=== PATIENT | female | born 1980 | race Caucasian/White ===

== ENCOUNTER 2019-03-11 15:08 | Emergency (ER) | payer OTHER ==
--- NOTE | 2019-03-11 15:21 | PDOC ---
Rapid Medical Evaluation Time Seen by Provider: 03/11/19 15:17 Medical Evaluation: 03/11/19 15:20 cc: s/p fall today HPI: Patient tripped and fall today with injury to left shoulder complaining of pain with movement of shoulder PE: appears in pain pain with movement of left arm +tenderness of left shoulder orders: xray of left shoulder and analgesia This patient will proceed to the main emergency department for further evaluation Discharge Disposition - Diagnosis Shoulder injury - Referrals - Patient Instructions - Post Discharge Activity
[2019-03-11 15:22] VITALS: BMI 24.1
[2019-03-11] MEDS ORDERED: morphine CARPU-JECT 2 MG/1 ML DISP.SYRIN IVPUSH ONE (15:28)
[2019-03-11] MEDS ORDERED: MORPHINE SULFATE 2 MG/ML VIAL ONE (16:44)
[2019-03-11] MEDS ORDERED: morphine CARPU-JECT 4 MG/1 ML DISP.SYRIN IVPUSH ONE (17:07)
[2019-03-11] MEDS ORDERED: HYDROmorphone HCL CARPU-JECT 2 MG/1 ML DISP.SYRIN IVPUSH ONE (17:10)
[2019-03-11] MEDS ORDERED: ACETAMINOPHEN 1000 MG/100 ML VIAL (NON FORMULARY) IVPB ONE (17:11)
[2019-03-11] MEDS ORDERED: HYDROmorphone HCl 2 MG/ML VIAL ONE (17:21)
[2019-03-11] MEDS ORDERED: ACETAMINOPHEN INJECTION 100 ML IVPB ONE (17:21)
--- NOTE | 2019-03-11 17:31 | PDOC ---
History of Present Illness - General Chief Complaint: Shoulder Dislocation Stated Complaint: FALL Time Seen by Provider: 03/11/19 15:17 History Source: Patient Exam Limitations: No Limitations - History of Present Illness Initial Comments: 03/11/19 17:34 HPI: 38yo F with no significant PMH presenting with L arm pain s/p FOOSh injury. Patient was walking her dog, fell onto outstretched hands, now with L shoulder pain. Denies numbness, tingling, distal swelling. No intoxication, no head trauma / neck pain. No skin breaks or bleeding in region of arm pain. Denies any chest pain, SOB, cough, dizziness, lightheadedness, recent illness. No anemia, no bleeding or clotting disorders. All: Cephalosporins Meds: 50mg Zoloft PMH: Denies PSH: Denies Past History - Travel Traveled outside of the country in the last 30 days: No Close contact w/someone who was outside of country & ill: No - Past Medical History Allergies/Adverse Reactions: Allergies Allergy/AdvReac Type Severity Reaction Status Date / Time Cephalosporins Allergy Verified 03/11/19 15:22 Home Medications: Ambulatory Orders Oxycodone HCl/Acetaminophen [Percocet 5-325 mg Tablet] 1 tab PO Q6H PRN #8 tablet MDD 3 tabs 03/11/19 COPD: No Psychiatric Problems: Yes (DEPRESSION) - Psycho Social/Smoking Cessation Hx Smoking History: Never smoked Review of Systems - Review of Systems Able to Perform ROS?: Yes Is the patient limited Lithuanian proficient: Yes Constitutional: No: Chills, Fever, Weakness HEENTM: No: Recent change in vision, Nose Congestion, Throat Pain Respiratory: No: Cough, Shortness of Breath, Wheezing Cardiac (ROS): No: Chest Pain, Irregular Heart Rate, Lightheadedness, Palpitations, Chest Tightness ABD/GI: No: Constipated, Diarrhea, Nausea, Vomiting : No: Burning, Dysuria, Discharge Musculoskeletal: No: Muscle Pain, Muscle Weakness, Neck Pain Integumentary: No: Pallor, Pruritus, Rash Neurological: No: Headache, Numbness, Tingling, Weakness Psychiatric: No: Stressors, Change in Appetite Endocrine: No: Increased Thirst, Increased Urine, Change in Weight Hematologic/Lymphatic: No: Anemia, Blood Clots, Easy Bleeding All Other Systems: Reviewed and Negative *Physical Exam - Vital Signs Last Vital Signs Temp Pulse Resp BP Pulse Ox 97.9 F 75 18 0/0 L 99 03/11/19 15:19 03/11/19 15:19 03/11/19 15:19 03/11/19 15:19 03/11/19 15:19 - Physical Exam 03/11/19 19:00 Vitals reviewed, AFVSS GEN: Well appearing, appears stated age, NAD, comfortable. AAOx3. HEENT: NCAT, EOMI, PERRL. Sclera anicteric, noninjected. No facial asymmetry. Moist mucous membranes. Normal voice. Trachea midline. CV: RRR, S1/S2, no murmurs / rubs / gallops appreciated. LUNG: CTAB, normal work of breathing. No wheezes, rales, rhonchi. No cough. Speaking full sentences. GI: Soft, NTND, +BS, no guarding, no rebound. No masses. Neg CVAT b/l. EXTREMITIES: 2+ distal pulses. No LE edema. MSK: LUE tender, swollen, painful with ROM, limited 2/2 pain SKIN: Warm, dry, no rashes appreciated, non-jaundiced. PSYCH: Normal mood and affect. Cooperative and appropriate. NEURO: CN grossly intact. Moving all extremities well. Normal strength and sensation grossly. Normal sensation to light touch LUE. ED Treatment Course - Medications Given in the ED: ED Medications Discontinued Medications Generic Name Dose Route Start Last Admin Trade Name Freq PRN Reason Stop Dose Admin Morphine Sulfate 2 mg 03/11/19 15:28 03/11/19 16:49 Morphine Injection - IVPUSH 03/11/19 15:29 2 mg ONCE ONE Administration Morphine Sulfate 4 mg 03/11/19 17:07 03/11/19 17:19 Morphine Injection - IVPUSH 03/11/19 17:08 Not Given ONCE ONE Medical Decision Making - Medical Decision Making 03/11/19 17:26 38yo F with no significant PMH presenting with L arm pain s/p FOOSH injury, neurovascularly intact, stable vitals, comfortable without motion. - LUE Xray with comminuted humeral fracture - 2mg Morphine - Spoke with Ortho, Pain control, CT LUE, F/u with Dr. Balderas tomorrow morning - Recommended percocet for breakthrough pain 03/11/19 17:57 - LMP 2 weeks ago, does not believe she could be - States she is happy to sign for CT - Tylenol, Dilaudid 03/11/19 18:10 - CT with expected findings, no emergent changes - CD and paper report provided - Patient placed in sling - Return precautions discussed Dispo: Home, Ortho F/u tomorrow Discharge - Discharge Information Problems reviewed: Yes Clinical Impression/Diagnosis: Shoulder injury Qualifiers: Encounter type: initial encounter Laterality: left Qualified Code(s): S49.92XA - Unspecified injury of left shoulder and upper arm, initial encounter Condition: Stable Disposition: HOME - Admission No - Additional Discharge Information Prescriptions: Oxycodone HCl/Acetaminophen [Percocet 5-325 mg Tablet] 1 tab PO Q6H PRN #8 tablet MDD 3 tabs PRN Reason: Severe Pain - Follow up/Referral Referrals: Shara Vora MD [Primary Care Provider] - Darrius Zimmer MD [Staff Physician] - - Patient Discharge Instructions Patient Printed Discharge Instructions: How to Use a Sling, DI for Shoulder Fracture Additional Instructions: You were seen and evaluated in the [facility] ER after a fall. A prescription pain medication (Percocet) has been sent to your pharmacy. Please take this as directed - you can use these 1/2 at a time to avoid side effects (lightheaded, dizzy, nausea). Take ibuprofen as well for the anti inflammatory properties. Follow up with Orthopaedic surgery (Dr. Zimmer) first thing tomorrow morning. Call their office to arrange your appointment. Return the the ED for any new or concerning symptoms. These can include but are not limited to: firmness of your arm, changes in color to a white color, loss of pulses, numbness / tingling. - Post Discharge Activity
--- NOTE | 2019-03-11 19:29 | PDOC ---
Documentation entered by Jose Roberto Huynh SCRIBE, acting as scribe for Ceci Pike MD. Ceci Pike MD: This documentation has been prepared by the Amina horn Xhesika, SCRIBE, under my direction and personally reviewed by me in its entirety. I confirm that the documentation accurately reflects all work, treatment, procedures, and medical decision making performed by me. Attending Attestation - Resident Resident Name: Brennan Rodriguez - ED Attending Attestation I have performed the following: I have examined & evaluated the patient, The case was reviewed & discussed with the resident, I agree w/resident's findings & plan, Exceptions are as noted - HPI HPI: 03/11/19 17:14 The patient is a 38 year old female with no significant PMH of who presents to the emergency department for L shoulder pain s/p fall. The patient states she was walking her dog and patient tripped down the hill. Pt denies LOC or hitting head. Pt notes her L shoulder pain is aggravated with arm movements. Pt states her LMP was 2 weeks ago. The patient denies chest pain, shortness of breath, headache and dizziness. Denies fever, chills, cough, nausea, vomiting, diarrhea and constipation. Denies dysuria, frequency, urgency and hematuria. Allergies: cephalosporins PCP: Shara Galeas - Physicial Exam PE: 03/11/19 17:29 GENERAL: Awake, alert, and fully oriented, in no acute distress HEAD: No signs of trauma EYES: PERRLA, EOMI, sclera anicteric, conjunctiva clear NECK: Normal ROM, supple, No midline cervical vertebral tenderness LUNGS: Breath sounds equal, clear to auscultation bilaterally. No wheezes, and no crackles HEART: Regular rate and rhythm, normal S1 and S2, no murmurs, rubs or gallops ABDOMEN: Soft, nontender, normoactive bowel sounds. No guarding, no rebound. No masses EXTREMITIES: + LEFT shoulder TTP. + LEFT shoulder slight deformity, sensation is intact,good ulnar and radial pulses NEUROLOGICAL: Cranial nerves II through XII grossly intact. Normal speech, normal gait SKIN: Warm, Dry, normal turgor, no rashes or lesions noted. 03/11/19 19:26 03/11/19 19:31 03/11/19 19:57 - Medical Decision Making 03/11/19 19:28 Shoulder x-ray shows a comminuted slightly displaced fracture involving the junction of the Left humeral neck, proximal humeral shaft with an avulsive fracture of the greater tuberosity Ortho consult with PA for Dr. Zimmer and recommendation is to do a CAT scan of the arm, sling the arm patient will be seen tomorrow in the office 03/11/19 19:55 03/11/19 20:01
[2019-03-11] MEDS ORDERED: IBUPROFEN 600 MG TABLET (FP) PO ONE ×2 (20:01→20:08)
[2019-03-11 20:25] VITALS: BP 110/65; PULSE 68; TEMP 98.1
== END 2019-03-11 20:32 | disposition home or self-care (01) ==
LOC: JER 15:08
PROC: 3E033NZ Introduction of Analgesics, Hypnotics, Sedatives into Peripheral Vein, Percutaneous Approach (ICD-10-PCS; principal; 2019-03-11)
PROC: 3E033NZ Introduction of Analgesics, Hypnotics, Sedatives into Peripheral Vein, Percutaneous Approach (ICD-10-PCS; 2019-03-11)
PROC: 3E033NZ Introduction of Analgesics, Hypnotics, Sedatives into Peripheral Vein, Percutaneous Approach (ICD-10-PCS; 2019-03-11)
DX: S42.352A Displaced comminuted fracture of shaft of humerus, left arm, initial encounter for closed fracture (principal); W18.39XA Other fall on same level, initial encounter; Y93.K1 Activity, walking an animal; Y92.828 Other wilderness area as the place of occurrence of the external cause; Y99.8 Other external cause status; F32.9 Major depressive disorder, single episode, unspecified; Z88.8 Allergy status to other drugs, medicaments and biological substances
CPT/HCPCS: 73030-TC-LT-FY; 73200-TC-RT; 99283-25; J0131